=== PATIENT | male | born 1995 | race Caucasian/White ===

== ENCOUNTER → 2019-01-21 | Outpatient (CLI) | payer OTHER, SELFPAY ==
--- NOTE | 2019-01-21 08:39 | RAD_ITS ---
STUDY: X-RAY - ABDOMEN/PELVIS REASON FOR EXAM: Male, 23 years old. Back pain TECHNIQUE: Flat and upright COMPARISON: None. FINDINGS: Normal visualized lung bases. There is an unremarkable bowel gas pattern. There is no demonstrated free abdominal air. The visualized liver, spleen and kidneys are grossly normal in size and morphology. Normal soft tissue structures. Mild dextroscoliosis or splinting secondary to muscle spasm RAD/Abd Inc Decub and/or Erect IMPRESSION: Nonspecific abdomen Electronically Signed: Edgard Shields MD at 17:05 EDT , Service support ,
[2019-01-21 10:21] LABS: Erythrocyte Sedimentation Rate 1 mm/hr (0-15)
[2019-01-21 10:22] LABS: Absolute Lymphocyte Count 1.88 X10^3/uL (0.83-4.51); Absolute Neutrophil Count 3.4 X10^3/uL (2.0-7.7); Basophil# 0.06 X10^3/uL; Eosinophil# 0.18 X10^3/uL; Hematocrit 42.3 % (40-54); Hemoglobin 14.5 g/dL (13.0-16.5); Lymphocyte # 1.88 X10^3/ul (4.0); Lymphocyte % 31.6 % (19-41); Mean Corp Hgb Conc 34.3 g/dL (32-36); Mean Corpuscular Volume 90.6 fL (80-94); Mean Platelet Vol. 10.1 fl (6.2-12.0); Monocyte% 6.7 % (0-10); NRBC Flagged by Analyzer 0 % (0-5); Neutrophil # 3.41 X10^3/uL (2.7-7.7); Neutrophil % 57.4 % (47-70); Platelet Count 312 K/mm3 (150-450); RBC Distribution Width CV 12.4 % (11.6-14.6); RBC Distribution Width SD 41.1 fl (35.1-43.9); Red Blood Count 4.67 M/mm3 (4.6-6.2)
[2019-01-21 10:33] LABS: ALB/GLOB Ratio 1.8 RATIO (0.9-2.4); AST(SGOT) 9 U/L (15-37); Alanine Aminotransfer ALT/SGPT 14 U/L (16-61); Albumin, Serum 4.6 g/dL (3.2-5.0); Alkaline Phosphatase 73 U/L (45-117); Amylase 50 U/L (25-115); Anion Gap 4 (5-15); BUN 8 mg/dL (7-18); BUN/Creat Ratio 8.2 RATIO (10-20); Calcium,Total 8.9 mg/dL (8.5-10.1); Chloride 105 mmol/L (98-107); Creatinine, Serum 0.97 mg/dL (0.70-1.30); EST Glomerular Filtration Rate 101 mL/min (>60); Est Glom Filt Rate - Afr Amer 122 mL/min (>60); Globulin 2.6 g/dL (2.2-4.2); Glucose 102 mg/dL (74-106); Lipase 59 U/L (73-393); Potassium 4.3 mmol/L (3.5-5.1); Protein, Total 7.2 g/dL (6.4-8.2); Sodium Level 138 mmol/L (136-145)
== END | disposition home or self-care (01) ==
LOC: MTLAB 08:30
PROVIDERS: Family Provider Family Medicine; PCP Family Medicine; Referring Provider Family Medicine; Visit Provider Family Medicine
DX: R10.9 Unspecified abdominal pain (principal)
CPT/HCPCS: 36415; 74019; 80053; 82150; 83690; 85025; 85652

== ENCOUNTER 2023-02-07 10:30 | Observation (INO) | payer OTHER, SELFPAY ==
[2023-02-07] VITALS (9 sets, daily range): BP systolic 106–137; BP diastolic 64–85; PULSE 74–112; RESP 14–95; TEMP 36.3–38.7; O2SAT 96–100; BMI 21.3; BMI 21.6
--- NOTE | 2023-02-07 11:07 | CT_ITS ---
STUDY: CT ABDOMEN AND PELVIS WITH CONTRAST REASON FOR EXAM: Male, 27 years old. 24 hour history of right lower quadrant pain with nausea and vomiting. RADIATION DOSAGE (If Supplied By Facility): CTDIvol = ( 6.21 ) mGy, DLP = ( 303.19 ) mGycm TECHNIQUE: Transaxial images were obtained from the dome of the diaphragm to the symphysis pubis without oral contrast. IV 100mL Isovue-300 was administered. Sagittal and coronal images were reconstructed. Individualized dose optimization techniques were used for this CT. COMPARISON: None. FINDINGS: The visualized lung bases are unremarkable. The visualized portions of the heart are within normal limits. Normal liver. Normal gallbladder and extrahepatic biliary system. Normal spleen. Normal pancreas. Normal bilateral adrenal glands. Normal right kidney. Normal left kidney. Normal visualized stomach. Normal small intestine. Normal colon. There is a tubular, thick-walled appendix (>7mm), consistent with acute appendicitis. There is evidence of a 3.5 mm appendicolith in the proximal appendiceal lumen. Normal abdominal aorta. Normal inferior vena cava. Normal retroperitoneum. Normal urinary bladder. Normal abdominal wall. Mild degree of degenerative changes at the L5-S1 level. CT/Abdomen/Pelvis W IV Cont ONLY IMPRESSION: Findings in keeping with the known complicated acute appendicitis with a 3.5 mm appendicolith in the proximal appendiceal. Electronically Signed: Joe Soler MD at 11:58 EDT ,
--- NOTE | 2023-02-07 11:08 | EX.ED.DYSGE1 ---
HPI History of Present Illness Chief Complaint: Abd Pain Informant: patient Onset/Context/Timing Onset: Yesterday Context: Gradual Onset Narrative Narrative: Patient presents with right lower quadrant pain that started about 24 hours ago. He has had nausea and vomiting, last episode about 3 hours ago. He reports subjective fever but did not check his temperature. He denies urinary symptoms, constipation, or diarrhea. PFSH PFSH Medical History no medical history no medical history Allergy/AdvReac Type Severity Reaction Status Date / Time Penicillins Allergy Unknown Other Verified 02/07/23 10:31 Social History Smoking Status: Never smoker ROS ROS ED Constitutional Constitutional ED: Reports fever(s) and subjective; Denies chills Eyes Eyes: Denies change in vision or discharge from eye(s) ENT ENT ED: Denies discharge from eye(s), rhinorrhea or sore throat Cardiovascular Cardiovascular: Denies chest pain Respiratory/Chest Respiratory/Chest: Denies cough or dyspnea Gastrointestinal Gastrointestinal: Reports abdominal pain, nausea and vomiting; Denies diarrhea Genitourinary Genitourinary ED: Denies dysuria Musculoskeletal Musculoskeletal: Denies back pain or extremity pain Integumentary Denies Abrasions or rash Neurologic Neurologic: Denies headache(s) or weakness Psychiatric Psychiatric: Denies anxiety or depression Allergic/Immunologic Allergic/Immunologic ED: Denies lip swelling or urticaria EXAM Physical Exam Const Vital Signs: 02/07/23 10:31 Temperature 98 F Temperature Source Temporal Pulse Rate 97 Respiratory Rate 14 Blood Pressure 126/78 H Blood Pressure Mean 94 Pulse Ox 100 Oxygen Delivery Method Room Air Positive well nourished and well developed General Appearance ED: well developed HEENT Reports normocephalic and head/scalp atraumatic Eyes PERRL and EOMs intact bilaterally Neck supple Chest Wall inspection of chest normal and palpation of chest normal Resp normal respiratory effort and clear to auscultation bilaterally Cardio regular rate and regular rhythm GI GI Narrative: Moderate tenderness to the right lower quadrant. No guarding. Hypoactive but present bowel sounds are noted. Palpation: soft Back/Spine no CVA tenderness Extremity normal to inspection Neuro oriented x3 and no sensory deficits noted Sensorium / Orientation: alert Motor Exam: strength 5/5 throughout Psych mental status grossly normal Skin no rashes or lesions noted MDM MDM MDM Narrative Medical decision making narrative: Patient given morphine, Zofran, IV fluids. Labwork obtained to evaluate for leukocytosis, anemia, and electrolyte derangement. Urinalysis obtained to evaluate for infection/hematuria. CT scan abdomen pelvis with IV contrast obtained to evaluate for appendicitis History & Record Review Discussion w/independent historian: Patient Lab Data Attestation: I reviewed the patient's lab results. Labs: Laboratory Results - last 24 hr 02/07/23 10:39 WBC 19.1 H RBC 4.51 L Hgb 14.2 Hct 39.8 L MCV 88.2 MCH 31.5 MCHC 35.7 RDW Std Deviation 41.3 RDW Coeff of Iram 12.8 Plt Count 311 MPV 9.8 Immature Gran % (Auto) 0.500 Neut % (Auto) 84.8 H Lymph % (Auto) 7.5 L Bee % (Auto) 6.8 Eos % (Auto) 0.1 Baso % (Auto) 0.3 Absolute Neuts (auto) 16.2 H Absolute Lymphs (auto) 1.43 Nucleated RBC % 0 Sodium 136 Potassium 3.9 Chloride 103 Carbon Dioxide 26.0 Anion Gap 7 BUN 10 Creatinine 0.91 Estim Creat Clear Calc 113.04 Est GFR (MDRD) Af Amer 128 Est GFR (MDRD) Non-Af 105 BUN/Creatinine Ratio 11.0 Glucose 107 H Calcium 9.4 Radiography Diagnostic Testing: Clinical Impression(s) from Imaging Studies Abdomen/Pelvis CT 02/07/23 11:07 IMPRESSION: Findings in keeping with the known complicated acute appendicitis with a 3.5 mm appendicolith in the proximal appendiceal. Electronically Signed: Joe Soler MD at 11:58 EDT , Treatment and Re-Evaluation :: CBC reveals leukocytosis with a white count of 19.1 and 84% neutrophils. Hemoglobin is 14.2. Chemistry studies are unremarkable. CT scan of the abdomen and pelvis with IV contrast reveals appendicitis with a thick-walled appendix measuring greater than 7 mm and a 3.5 mm appendicolith in the proximal appendiceal lumen. Test results are discussed with patient and family. Given he has a penicillin allergy he is given Cipro and Flagyl. I will speak with surgery. Discharge Plan Triage Chief Complaint: Abd Pain ED Provider: Shell Barajas Dx/Rx/DC Orders Clinical Impression: Acute appendicitis Primary Care Provider: Rickey Beach Referrals: Rickey Beach MD [Primary Care Provider] - Disposition Disposition: Acute Care Hospital [facility]
[2023-02-07 11:15] LABS: Absolute Lymphocyte Count 1.43 X10^3/uL (0.83-4.51); Absolute Neutrophil Count 16.2 X10^3/uL (2.0-7.7); Basophil# 0.05 X10^3/uL; Basophil% 0.3 % (0-1); Eosinophil# 0.01 X10^3/uL; Eosinophils% 0.1 % (0-5); Hematocrit 39.8 % (40-54); Hemoglobin 14.2 g/dL (13.0-16.5); Lymphocyte # 1.43 X10^3/ul (0.83-4.51); Lymphocyte % 7.5 % (19-41); Mean Corp Hgb Conc 35.7 g/dL (32-36); Mean Corpuscular Hgb 31.5 pg (27.0-32.0); Mean Corpuscular Volume 88.2 fL (80-94); Mean Platelet Vol. 9.8 fl (6.2-12.0); Monocyte% 6.8 % (0-10); NRBC Flagged by Analyzer 0 % (0-5); Neutrophil # 16.23 X10^3/uL (2.7-7.7); Neutrophil % 84.8 % (47-70); Platelet Count 311 K/mm3 (150-450); RBC Distribution Width CV 12.8 % (11.6-14.6); RBC Distribution Width SD 41.3 fl (35.1-43.9); Red Blood Count 4.51 M/mm3 (4.6-6.2); White Blood Count 19.1 K/mm3 (4.4-11.0)
[2023-02-07] MEDS: 0.9% Normal Saline 1,000 ML 150 ML IV (11:23)
[2023-02-07 11:31] LABS: Anion Gap 7 (5-15); BUN 10 mg/dL (7-18); Calcium,Total 9.4 mg/dL (8.5-10.1); Chloride 103 mmol/L (98-107); Creatinine, Serum 0.91 mg/dL (0.70-1.30); EST Glomerular Filtration Rate 105 mL/min (>60); Est Glom Filt Rate - Afr Amer 128 mL/min (>60); Estimated Creatinine Clearance 113.04 ml/min; Glucose 107 mg/dL (74-106); Potassium 3.9 mmol/L (3.5-5.1); Sodium Level 136 mmol/L (136-145)
[2023-02-07] MEDS: Ciprofloxacin 400 MG/200 ML BAG 200 MG IV ×2 (12:07→22:47)
--- NOTE | 2023-02-07 12:19 | NURSING ---
MED SURG OR SURGERY BORTZ APPENDICITIS
[2023-02-07] MEDS: Ondansetron 4 MG/2 ML Vial IV (12:47)
[2023-02-07] MEDS: Morphine 4 MG/ML Syringe IV (12:47)
[2023-02-07] MEDS: metroNIDAZOLE 500 MG/100 ML BAG 100 MG IV ×2 (13:13→21:24)
[2023-02-07 13:22] LABS: Bacteria 0 SEEN /hpf (None Seen); Mucous, Urine 0 SEEN /hpf (<or=2+); Red Blood Cells-Urine 0 SEEN /hpf (0-5); Squamous Epithelial Cells - UA 0 SEEN /hpf (0-5); White Blood Cells 0 SEEN /hpf (0-5)
[2023-02-07 13:27] LABS: Color, Urine Straw (Yellow); Glucose, Dipstick Normal (Normal); Ketone-Dipstick 5 mg/dl (Negative); Leukocyte Esterase-Dipstick Negative /ul (Negative); Nitrite-Dipstick Negative (Negative); Occult Blood-Urine Negative /ul (Negative); Protein-Dipstick Negative (Negative); Specific Gravity, Urine 1.005 (1.002-1.030); Urine Bilirubin Dipstick Negative (Negative); Urine Clarity Clear (Clear); Urine Urobilinogen Normal (Normal)
--- NOTE | 2023-02-07 13:33 | PCM.HP.STD ---
HPI - General General Date of Service: 02/07/23 Chief Complaint: Acute onset abdominal pain with associated nausea and vomiting HPI Narrative JAZZY CLAUDIO, is a 27, otherwise healthy, M who presents to [facility] with complaints of abdominal pain that began acutely 24 hours ago. He notes some associated nausea and vomiting. He states that the pain was generally diffuse and then became localized to the right lower quadrant since its onset. He actually describes having a prior episode several years ago but never presented for medical attention. There are subjective fevers, but no temperature has been recorded. Mr. Claudio notes normal bowel movement yesterday before the pain began. ER work-up remarkable for CBC with leukocytosis to 19,[address] of the abdomen pelvis shows evidence of acute appendicitis with appendicolith. 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 PFSH Medical History no medical history Allergy/AdvReac Type Severity Reaction Status Date / Time Penicillins Allergy Unknown Other Verified 02/07/23 10:31 Social History Smoking Status: Never smoker ROS Constitutional Constitutional: Reports fever(s) Gastrointestinal Gastrointestinal: Reports abdominal pain, nausea and vomiting; Denies constipation or diarrhea Vital Signs Vital Signs Vital Signs: 02/07/23 10:31 02/07/23 13:04 Temperature 98 F 97.4 F L Temperature Source Temporal Temporal Pulse Rate 97 74 Respiratory Rate 14 16 Blood Pressure 126/78 H 137/66 H Blood Pressure Mean 94 89 Pulse Ox 100 98 Oxygen Delivery Method Room Air Room Air Weight Weight: 144 lb 8 oz Body Mass Index (BMI) 21.3 Physical Exam Const alert, oriented x3 and no apparent distress Resp normal respiratory effort GI GI Narrative: Slender, nondistended, no scars, soft, tender to palpation over McBurney's point. Positive Rovsing sign. Negative obturator sign. Results Lab / Micro Data 02/07/23 10:39 02/07/23 10:39 Labs: Laboratory Results - last 24 hr 02/07/23 10:39: WBC 19.1 H, RBC 4.51 L, Hgb 14.2, Hct 39.8 L, MCV 88.2, MCH 31.5, MCHC 35.7, RDW Std Deviation 41.3, RDW Coeff of Iram 12.8, Plt Count 311, MPV 9.8, Immature Gran % (Auto) 0.500, Neut % (Auto) 84.8 H, Lymph % (Auto) 7.5 L, [place] % (Auto) 6.8, Eos % (Auto) 0.1, Baso % (Auto) 0.3, Absolute Neuts (auto) 16.2 H, Absolute Lymphs (auto) 1.43, Nucleated RBC % 0, Sodium 136, Potassium 3.9, Chloride 103, Carbon Dioxide 26.0, Anion Gap 7, BUN 10, Creatinine 0.91, Estim Creat Clear Calc 113.04, Est GFR (MDRD) Af Amer 128, Est GFR (MDRD) Non-Af 105, BUN/Creatinine Ratio 11.0, Glucose 107 H, Calcium 9.4 02/07/23 13:15: Urine Color Straw, Urine Clarity Clear, Urine pH 7.0, Ur Specific [place] 1.005, Urine Protein Negative, Urine Glucose (UA) Normal, Urine Ketones 5 H, Urine Occult Blood Negative, Urine Nitrite Negative, Urine Bilirubin Negative, Urine Urobilinogen Normal, Ur Leukocyte Esterase Negative Radiology Impression Abdomen/Pelvis CT 02/07/23 11:07 IMPRESSION: Findings in keeping with the known complicated acute appendicitis with a 3.5 mm appendicolith in the proximal appendiceal. Electronically Signed: Joe Soler MD at 11:58 EDT , Assessment & Plan Assessment/Plan (1) Acute appendicitis: PLAN: This is a 27-year-old, otherwise healthy, male with a history of acute onset abdominal pain beginning 24 hours ago that has become localized to the right lower quadrant with some associated nausea and vomiting. ER work-up is consistent with diagnosis of acute appendicitis. Moreover, patient has appendicoliths visualized with CT imaging. And finally his exam is consistent with this diagnosis. Therefore, I have recommended proceeding with a emergent laparoscopic appendectomy. I have discussed the role of IV antibiotics and the diagnosis of appendicitis, but referenced the recent coda trial and stated I would not recommend an antibiotic?alone approach?especially given the presence of these appendicoliths. Mr. Claudio and his family expressed their understanding of this information and wish to proceed as soon as possible. I have shared with them that it is my hope we will be able to finish in the operating room at an hour that we will allow him to discharge home (barring any unforeseen issues in the operating room). Patient was consented for a laparoscopic appendectomy after a discussion of the relevant risks and postoperative activity restrictions. Antibiotics were previously initiated by emergency medicine. Charges/Coding Visit Charges Office Visits / Consults: 81203 ED Visit; High/Urgent Severity
[2023-02-07] MEDS: Lactated Ringers 1,000 ML 15 ML IV (15:34)
--- NOTE | 2023-02-07 16:00 | APP_PTH ---
PATIENT: JAZZY CLAUDIO LOC: MS3 U#:[id number] AGE/SX: 27/M ROOM: [facility] RE02/07/[address]: Dr. Luther Sorensen MD : 1995 BED: 1 DIS: 02/09/2023 SPEC #: [id number] RECD: 02/08/23 09:48 STATUS: MARIO REMateo #: [id number] CATHERINE: 02/07/23 16:[address]: Luther Sorensen DEPT: SURGICAL PATHOLOGY RECD BY: Benita Cavazos ENTERED: 02/08/23 10:21 SP TYPE: APPENDIX OTHR DR: Dr. Sebastian Beach MD Tissues: Appendix, NOS Procedures: Surgery Specimen Level III HEADER OPERATION: Laparoscopic appendectomy PRE-OP DIAGNOSIS: Acute appendicitis TISSUE SUBMITTED: Appendix MICROSCOPIC DIAGNOSIS Appendix, appendectomy: Acute appendicitis and periappendicitis. NANCY:abby 02/12/2023 MICROSCOPIC DESCRIPTION Slides are reviewed. GROSS DESCRIPTION Received in fixative is one container labeled with the patient's name and designated appendix. The specimen consists of a S-shaped appendix measuring 8.0 cm in length and up to 1.5 cm in diameter. The serosa is congested. No obvious perforation is identified. The serosa is focally covered with larkin, purulent exudate. The lumen contains fecal material. No fecalith is identified. Heat Regulator sections are submitted in one cassette. / SJ:rg 02/08/2023 TC:2 CPT: 22554
[2023-02-07] MEDS: Clindamycin 900 MG/50 ML BAG 75 MG IV (16:42)
[2023-02-07] MEDS: Bupivacaine Mpf 0.5% 30 ML VIAL (18:18)
--- NOTE | 2023-02-07 18:25 | PCM.OPRPT ---
Report of Operation Date of Procedure: 02/07/23 Pre-Operative Diagnosis: Acute appendicitis with appendicoliths Post-Operative Diagnosis: Acute, complicated (perforated) appendicitis with appendicoliths Surgery/Procedure Performed:: Laparoscopic appendectomy with drain placement Description of Surgical Findings:: ? Purulent fluid around the right paracolic gutter, retrocecal appendix with appendiceal tip entwined with the soft tissue attachments to the ascending colon near the hepatic flexure Surgeon: Luther Sorensen Type of Anesthesia: General/Supplemental Anesthesiologist: Gene Clayton Specimen's removed: Appendix Drains: 15 Nepalese round Patrice Estimated Blood Loss (mL): 15 Description of Procedure: After appropriate identification in the preoperative holding area, the patient was brought to the operating room and placed supine on the operating room table. Antibiotics had been preoperatively administered. Patient was then induced with general endotracheal anesthetic. The abdomen was prepped and draped in usual sterile fashion. Formal timeout was conducted to confirm both the patient and the procedure. A supraumbilical incision was made and carried down to the level of the fascia which was sharply opened. After opening the peritoneum in like fashion a finger sweep was made to confirm position, and a balloon trocar was placed and pneumoperitoneum was established to 15 mmHg. Patient was positioned in Trendelenburg with the left side down. Two additional 5 mm trocars were placed in the left lower quadrant and suprapubic positions. The peritoneum was inspected and there were no signs of inadvertent injury from this Loving entry. However the area of the cecum and ascending colon was inspected and it was immediately apparent that there was purulent fluid tracking along the right paracolic gutter. Notably, the appendix was not readily visible. There was some significant inflammation crossing the ascending colon as it approached the hepatic flexure. Therefore I resolved to try to trace the appendix through the coalescence of the tinea and found it coursing directly in a retrocecal lie. Given this position and the significant inflammation to the adjacent colon I believed the appendix would be best approached through [id number] mobilization of the right colon and therefore incised the white line of Toldt and bluntly mobilized the colon medially. This allowed me to free the appendix from the soft tissue attachments to the ascending colon. Denser attachments were taken with the harmonic scalpel directly adjacent to the appendix to mitigate the risk for inadvertent colon injury. Then I was able to use a [place] grasper to bluntly develop a window at the base of the appendix. The base of the appendix was sealed and amputated with the use of an Endo DARÍO stapler. Gradually then I divided the mesoappendix with the harmonic scalpel but it remained deeply embedded within the soft tissue attachments to the ascending colon at the tip. Here I applied upward traction on the appendix and performed blunt dissection with a [place] grasper using the downward weight of the colon to my advantage to free the tip of the appendix from these attachments. They were carefully lysed as well with the harmonic scalpel. Ultimately I was able to visualize the full remaining length of the appendix and divided the mesoappendix that remained with the harmonic scalpel. The appendix was placed in an Endo Catch bag. The staple line was inspected for hemostasis. The retroperitoneum where the colon had been mobilized was also inspected for hemostasis. Initially there was slight oozing in the far right upper quadrant, but I applied some pressure to this area and the bleeding stopped. After hemostasis was confirmed a 15 [place]e round Patrice drain was fed in through the umbilical port and removed through the suprapubic port?taking the port with the drain tubing. The drain tubing was secured at the skin using a 2-0 nylon stitch. The appendix was removed from the umbilical port site. Pneumoperitoneum was then evacuated and the supraumbilical port site fascia was closed with #1 Vicryl in a [id number] fashion. The port sites were infiltrated with 30mL local anesthetic. The skin of each port site was closed with 4-0 Monocryl in a subcuticular fashion. Steri-Strips and OpSite dressings were applied. Patient tolerated procedure well without any apparent complications. They were awoken from general anesthetic without issue and transferred to post anesthesia care unit for ongoing recovery. Complications None Admit VTE Documentation VTE Mechan Device Prophylaxis: SCD's Procedures Digestive 40xxx-49xxx: 14639 Laparoscopy appendectomy
[2023-02-07] MEDS: Acetaminophen 500 MG Tablet PO (20:25)
[2023-02-07] MEDS: oxyCODONE 5 MG Tablet PO (20:25)
[2023-02-07] MEDS: 0.9% Normal Saline 1,000 ML 100 ML IV (20:31)
[2023-02-08] VITALS (9 sets, daily range): BP systolic 97–109; BP diastolic 56–68; PULSE 64–92; RESP 14–16; TEMP 36.6–36.9; O2SAT 95–100
[2023-02-08] MEDS: Ibuprofen 400 MG Tablet PO ×4 (00:43→18:02)
[2023-02-08] MEDS: metroNIDAZOLE 500 MG/100 ML BAG 100 MG IV ×3 (05:26→21:02)
[2023-02-08] MEDS: Acetaminophen 500 MG Tablet PO ×2 (05:27→19:41)
[2023-02-08] MEDS: oxyCODONE 5 MG Tablet PO ×3 (05:28→21:01)
--- NOTE | 2023-02-08 06:53 | PCM.PN.SRG ---
Subjective Subjective Patient reports that he is overall feeling better today. He admits to some soreness. He notes some particular discomfort around his groin. He denies an appetite yet this morning. Nursing states that there have not been any acute events overnight, but do remark that patient's blood pressure has been on the softer side this morning. Objective Data Objective Data Vital Signs: Vital Signs Temp Pulse Resp BP Pulse Ox O2 Del Method 98 F 92 16 100/58 L 99 Room Air 02/08/23 05:35 02/08/23 05:35 02/08/23 05:35 02/08/23 06:42 02/08/23 05:35 02/08/23 05:35 Oxygen Delivery Method Room Air Weight: 146 lb 9.718 oz Body Mass Index (BMI) 21.6 Intake & Output: Intake and Output for Last 24 Hours 02/06/23 02/07/23 02/08/23 23:59 23:59 23:59 Intake Total 2743.33 / 2743.33 926.67 / 926.67 Output Total 315 / 315 15 / 15 Balance 2428.33 / 2428.33 911.67 / 911.67 Lab / Micro Data 02/08/23 05:58 02/08/23 05:58 Labs: Laboratory Results - last 24 hr 02/07/23 10:39: WBC 19.1 H, RBC 4.51 L, Hgb 14.2, Hct 39.8 L, MCV 88.2, MCH 31.5, MCHC 35.7, RDW Std Deviation 41.3, RDW Coeff of Iram 12.8, Plt Count 311, MPV 9.8, Immature Gran % (Auto) 0.500, Neut % (Auto) 84.8 H, Lymph % (Auto) 7.5 L, [place] % (Auto) 6.8, Eos % (Auto) 0.1, Baso % (Auto) 0.3, Absolute Neuts (auto) 16.2 H, Absolute Lymphs (auto) 1.43, Nucleated RBC % 0, Sodium 136, Potassium 3.9, Chloride 103, Carbon Dioxide 26.0, Anion Gap 7, BUN 10, Creatinine 0.91, Estim Creat Clear Calc 113.04, Est GFR (MDRD) Af Amer 128, Est GFR (MDRD) Non-Af 105, BUN/Creatinine Ratio 11.0, Glucose 107 H, Calcium 9.4 02/07/23 13:15: Urine Color Straw, Urine Clarity Clear, Urine pH 7.0, Ur Specific [place] 1.005, Urine Protein Negative, Urine Glucose (UA) Normal, Urine Ketones 5 H, Urine Occult Blood Negative, Urine Nitrite Negative, Urine Bilirubin Negative, Urine Urobilinogen Normal, Ur Leukocyte Esterase Negative, Urine RBC 0 SEEN, Urine WBC 0 SEEN, Ur Squamous Epith Cells 0 SEEN, Urine Bacteria 0 SEEN, Urine Mucus 0 SEEN Radiography Diagnostic Testing: Radiology Impression Abdomen/Pelvis CT 02/07/23 11:07 IMPRESSION: Findings in keeping with the known complicated acute appendicitis with a 3.5 mm appendicolith in the proximal appendiceal. Electronically Signed: Joe Soler MD at 11:58 EDT , Physical Exam Const oriented x3 and no apparent distress Resp normal respiratory effort GI GI Narrative: Soft, mildly tender to palpation around left lower quadrant port site. Suprapubic drain with serosanguineous output (scant volume) Assessment & Plan Assessment/Plan (1) Acute perforated appendicitis: PLAN: Plan Patient is 27-year-old male postoperative day 1 from laparoscopic appendectomy with drain placement due to intraoperative findings of perforated appendicitis. His family has been extensively debriefed about my expectations for a postoperative SIRS response and probable ileus. Patient was febrile postoperatively, but his fever curve seems to be trending appropriately. He is tolerating a clear liquid diet, but also confesses he is yet to pass flatus postoperatively. He does report some groin discomfort which seems at least partially related to the presence of his suprapubic drain. He notes that he had some difficulty urinating initially, but that this is becoming progressively better. He expresses a desire to discharge home, but acknowledges that he knows he must not abdul things. ?Continue clear liquid diet without carbonation ? Continue to monitor drain output ? Continue IV antibiotics (we will look to hopefully advance diet tomorrow and transition to oral antibiotics) Charges/Coding Visit Charges Inpatient E&M: 57740 Subs Hosp L2
[2023-02-08 07:08] LABS: Absolute Lymphocyte Count 1.21 X10^3/uL (0.83-4.51); Absolute Neutrophil Count 11.3 X10^3/uL (2.0-7.7); Basophil# 0.01 X10^3/uL; Basophil% 0.1 % (0-1); Eosinophil# 0.01 X10^3/uL; Eosinophils% 0.1 % (0-5); Hematocrit 35.1 % (40-54); Hemoglobin 11.3 g/dL (13.0-16.5); Lymphocyte # 1.21 X10^3/ul (0.83-4.51); Lymphocyte % 9.1 % (19-41); Mean Corp Hgb Conc 32.2 g/dL (32-36); Mean Corpuscular Volume 93.1 fL (80-94); Mean Platelet Vol. 10.4 fl (6.2-12.0); Monocyte# 0.68 X10^3/uL; Monocyte% 5.1 % (0-10); NRBC Flagged by Analyzer 0 % (0-5); Neutrophil % 84.8 % (47-70); Platelet Count 268 K/mm3 (150-450); RBC Distribution Width CV 13.1 % (11.6-14.6); RBC Distribution Width SD 44.8 fl (35.1-43.9); Red Blood Count 3.77 M/mm3 (4.6-6.2); White Blood Count 13.3 K/mm3 (4.4-11.0)
[2023-02-08 07:48] LABS: Anion Gap 5 (5-15); BUN 12 mg/dL (7-18); BUN/Creat Ratio 14.6 RATIO (10-20); Calcium,Total 8.5 mg/dL (8.5-10.1); Chloride 106 mmol/L (98-107); Creatinine, Serum 0.82 mg/dL (0.70-1.30); EST Glomerular Filtration Rate 119 mL/min (>60); Est Glom Filt Rate - Afr Amer 143 mL/min (>60); Estimated Creatinine Clearance 127.28 ml/min; Glucose 107 mg/dL (74-106); Potassium 4.2 mmol/L (3.5-5.1); Sodium Level 139 mmol/L (136-145)
[2023-02-08] MEDS: 0.9% Normal Saline 1,000 ML 100 ML IV ×2 (09:26→20:48)
[2023-02-08] MEDS: Ciprofloxacin 400 MG/200 ML BAG 200 MG IV ×2 (09:27→22:18)
--- NOTE | 2023-02-08 13:45 | NURSING ---
Attempted to call mother Ana Rosa back but no answer. Will try again later.
[2023-02-09] MEDS: Ibuprofen 400 MG Tablet PO ×3 (00:47→12:57)
[2023-02-09 00:48] VITALS: BP 94/59; PULSE 73; RESP 16; TEMP 36.4; O2SAT 99
[2023-02-09 04:48] LABS: Absolute Neutrophil Count 4.7 X10^3/uL (2.0-7.7); Basophil# 0.04 X10^3/uL; Basophil% 0.5 % (0-1); Eosinophil# 0.18 X10^3/uL; Eosinophils% 2.2 % (0-5); Hematocrit 31.7 % (40-54); Hemoglobin 10.6 g/dL (13.0-16.5); Lymphocyte % 32.1 % (19-41); Mean Corp Hgb Conc 33.4 g/dL (32-36); Mean Corpuscular Hgb 30.9 pg (27.0-32.0); Mean Corpuscular Volume 92.4 fL (80-94); Monocyte# 0.59 X10^3/uL; Monocyte% 7.3 % (0-10); NRBC Flagged by Analyzer 0 % (0-5); Neutrophil # 4.67 X10^3/uL (2.7-7.7); Neutrophil % 57.7 % (47-70); Platelet Count 226 K/mm3 (150-450); RBC Distribution Width CV 13.1 % (11.6-14.6); RBC Distribution Width SD 43.9 fl (35.1-43.9); Red Blood Count 3.43 M/mm3 (4.6-6.2); White Blood Count 8.1 K/mm3 (4.4-11.0)
[2023-02-09 05:15] LABS: Anion Gap 4 (5-15); BUN 14 mg/dL (7-18); BUN/Creat Ratio 19.3 RATIO (10-20); Chloride 109 mmol/L (98-107); Creatinine, Serum 0.72 mg/dL (0.70-1.30); EST Glomerular Filtration Rate 137 mL/min (>60); Est Glom Filt Rate - Afr Amer 166 mL/min (>60); Estimated Creatinine Clearance 144.96 ml/min; Glucose 90 mg/dL (74-106); Magnesium 1.9 mg/dL (1.6-2.6); Phosphorus 3.1 mg/dL (2.5-4.9); Potassium 3.8 mmol/L (3.5-5.1); Sodium Level 141 mmol/L (136-145)
[2023-02-09] MEDS: metroNIDAZOLE 500 MG/100 ML BAG 100 MG IV ×2 (05:44→13:01)
[2023-02-09 05:47] VITALS: BP 110/66; PULSE 62; RESP 16; TEMP 36.6; O2SAT 100
--- NOTE | 2023-02-09 07:28 | PCM.PN.SRG ---
Subjective Subjective Patient seen and examined during AM rounds. He reported no acute events overnight. He stated that he had an appetite. Abdominal/pelvic pain from yesterday is much improved. Seen later in the day after diet was advanced, patient commented that he had no difficulties with any nausea or bloating and continued to pass flatus. Objective Data Objective Data Vital Signs: Vital Signs Temp Pulse Resp BP Pulse Ox O2 Del Method 97.8 F 62 16 110/66 100 Room Air 02/09/23 05:47 02/09/23 05:47 02/09/23 05:47 02/09/23 05:47 02/09/23 05:47 02/09/23 05:47 Oxygen Delivery Method Room Air Weight: 146 lb 9.718 oz Body Mass Index (BMI) 21.6 Intake & Output: Intake and Output for Last 24 Hours 02/07/23 02/08/23 02/09/23 23:59 23:59 23:59 Intake Total 2743.33 / 2743.33 2813.34 / 3013.34 1500 / 1500 Output Total 315 / 315 40 / 70 90 / 90 Balance 2428.33 / 2428.33 2773.34 / 2943.34 1410 / 1410 Lab / Micro Data 02/09/23 04:00 02/09/23 04:00 Labs: Laboratory Results - last 24 hr 02/08/23 05:58: Sodium 139, Potassium 4.2, Chloride 106, Carbon Dioxide 28.0, Anion Gap 5, BUN 12, Creatinine 0.82, Estim Creat Clear Calc 127.28, Est GFR (MDRD) Af Amer 143, Est GFR (MDRD) Non-Af 119, BUN/Creatinine Ratio 14.6, Glucose 107 H, Calcium 8.5 02/09/23 04:00: WBC 8.1, RBC 3.43 L, Hgb 10.6 L, Hct 31.7 L, MCV 92.4, MCH 30.9, MCHC 33.4, RDW Std Deviation 43.9, RDW Coeff of Iram 13.1, Plt Count 226, MPV 10.0, Immature Gran % (Auto) 0.200, Neut % (Auto) 57.7, Lymph % (Auto) 32.1, [place] % (Auto) 7.3, Eos % (Auto) 2.2, Baso % (Auto) 0.5, Absolute Neuts (auto) 4.7, Absolute Lymphs (auto) 2.60, Nucleated RBC % 0, Sodium 141, Potassium 3.8, Chloride 109 H, Carbon Dioxide 28.0, Anion Gap 4 L, BUN 14, Creatinine 0.72, Estim Creat Clear Calc 144.96, Est GFR (MDRD) Af Amer 166, Est GFR (MDRD) Non-Af 137, BUN/Creatinine Ratio 19.3, Glucose 90, Calcium 8.0 L, Phosphorus 3.1, Magnesium 1.9 Physical Exam Const oriented x3 and no apparent distress Resp normal respiratory effort GI GI Narrative: Soft, nondistended, nontender to palpation. Drain site in suprapubic position with serous output. Assessment & Plan Assessment/Plan (1) Acute perforated appendicitis: PLAN: Plan Patient is 27-year-old male postoperative day 2 from laparoscopic appendectomy with drain placement due to intraoperative findings of perforated appendicitis. He is doing much better today. He has appropriate pain control. He does not show any signs of a postoperative ileus with tolerance of regular food. We will plan to transition him to oral antibiotics upon discharge to try to minimize his risk for a postoperative abscess. I will plan to pull his drain prior to discharge. ? Regular diet ? DC drain ? DC to home with oral antibiotics and short prescription for narcotic Charges/Coding Visit Charges Inpatient E&M: 81151 Subs Hosp L2
[2023-02-09 09:00] VITALS: BP 107/65; PULSE 72; RESP 18; TEMP 36.8; O2SAT 100
[2023-02-09] MEDS: Ciprofloxacin 400 MG/200 ML BAG 200 MG IV (10:02)
[2023-02-09] MEDS: 0.9% Normal Saline 1,000 ML 25 ML IV (10:02)
[2023-02-09] MEDS: oxyCODONE 5 MG Tablet PO (13:01)
--- NOTE | 2023-02-09 15:16 | DCINST_ITS ---
Discharge Instructions Diet Discharge Diet: No restrictions Activity Discharge Activity: May Shower (But keep drain dressing free of water) Ice area for (Minutes): 20 Lifting Restrictions: No lifting greater than 15 pounds for 2 weeks after surgery Dressing / Incision Call your doctor if your incision/area has: Increased Pain/ Swelling, Foul Smelling Discharge, Swelling at the incision site and - (Please keep dressing in place over drain site for 48 hours then okay to remove if no longer draining) Call your doctor if you observe: Fever of 101 or Higher, Inability to urinate, Inability to have a bowel movement, Prolonged hiccupping and - (abdominal distention) Remove Dressing in: 2 days (from drain site) Cleanse incision/area with: Soap & Water Follow Up Care Please Follow Up With: Luther Sorensen MD When: 7-10 days from hospital discharge Test Results: Test results from this visit will be discussed in further detail at your follow- up appointment, if applicable. Discharge Plan Admission Admit Date/Time: 02/07/23 18:27 Primary Reason for Your Visit: Perforated appendicitis Attending Provider: Luther Sorensen Primary Care Provider: Rickey Beach Discharge Orders/Prescriptions Prescriptions: New oxycodone 5 mg Tablet 5 mg PO Q6H PRN PRN (Reason: Pain Score 6-10) 3 Days Qty: 10 0RF ciprofloxacin HCl 500 mg tablet 500 mg PO Q8H 3 Days Qty: 9 0RF metronidazole 500 mg tablet 500 mg PO Q12H 3 Days Qty: 6 0RF Referrals / Follow Up: Rickey Beach MD [Primary Care Provider] - Disposition Disposition (needs filled in before D/C Order can be placed): Home, Self Care
[2023-02-09 15:43] VITALS: BP 101/58; PULSE 74; RESP 18; TEMP 36.6; O2SAT 98
--- NOTE | 2023-02-09 16:38 | DS.PCM_ITS ---
Providers Date of Admission: 02/07/23 Primary Care Physician: Dr. Rickey Beach MD Reason For Visit: APPENDICITIS Diagnosis Discharge Diagnosis (1) Acute perforated appendicitis: Status: Acute Code(s): K35.32 - Acute appendicitis with perforation, localized peritonitis, and gangrene, without abscess Plan Patient is 27-year-old male postoperative day 2 from laparoscopic appendectomy with drain placement due to intraoperative findings of perforated appendicitis. He is doing much better today. He has appropriate pain control. He does not show any signs of a postoperative ileus with tolerance of regular food. We will plan to transition him to oral antibiotics upon discharge to try to minimize his risk for a postoperative abscess. I will plan to pull his drain prior to discharge. ? Regular diet ? DC drain ? DC to home with oral antibiotics and short prescription for narcotic Medications at Discharge Home Medications ciprofloxacin HCl 500 mg tablet 500 mg PO Q8H 3 days #9 tabs 02/09/23 metronidazole 500 mg tablet 500 mg PO Q12H 3 days #6 tabs 02/09/23 oxycodone 5 mg tablet 5 mg PO Q6H PRN PRN Pain Score 6-10 3 days #10 tabs 02/09/23 Hospital Course Operations appendectomy Procedures None Summary of Care Provided Hospital Course: Patient is a 27-year-old male who is admitted 2 days ago following a laparoscopic appendectomy with drain placement for perforated appendicitis. Postoperative day 1 Mr. Nascimento had some difficulty with postoperative discomfort and some minor delay in his bowel function returned. However, by today postoperative day 2 he is passing gas regularly and tolerating a regular diet without nausea or vomiting. Given that his drain has had scant output and that output has been clear in character it was discontinued today without event. At his request, patient was discharged home with postoperative activity restrictions and transitioned to oral antibiotics. He is advised that he will need to follow-up with me as an outpatient in 7 to 10 days. Physical Exam Const alert, oriented x3 and no apparent distress Resp normal respiratory effort GI GI Narrative: Nondistended, Steri-Strips intact over 2 port sites. Patient's drain was removed without significant tenderness and had minimal drainage of serous fluid. Here a gauze has been taped in place Weight / BMI Weight Weight: 146 lb 9.718 oz Body Mass Index (BMI) 21.6 ABG / Lab / Microbiology Data 02/09/23 04:00 02/09/23 04:00 Laboratory: Laboratory Results - last 24 hr 02/09/23 04:00: WBC 8.1, RBC 3.43 L, Hgb 10.6 L, Hct 31.7 L, MCV 92.4, MCH 30.9, MCHC 33.4, RDW Std Deviation 43.9, RDW Coeff of Iram 13.1, Plt Count 226, MPV 10.0, Immature Gran % (Auto) 0.200, Neut % (Auto) 57.7, Lymph % (Auto) 32.1, [place] % (Auto) 7.3, Eos % (Auto) 2.2, Baso % (Auto) 0.5, Absolute Neuts (auto) 4.7, Absolute Lymphs (auto) 2.60, Nucleated RBC % 0, Sodium 141, Potassium 3.8, Chloride 109 H, Carbon Dioxide 28.0, Anion Gap 4 L, BUN 14, Creatinine 0.72, Estim Creat Clear Calc 144.96, Est GFR (MDRD) Af Amer 166, Est GFR (MDRD) Non-Af 137, BUN/Creatinine Ratio 19.3, Glucose 90, Calcium 8.0 L, Phosphorus 3.1, Magnesium 1.9 D/C Instructions Discharge Diet: No restrictions Ice area for (Minutes): 20 Call your doctor if your incision/area has: Increased Pain/ Swelling, Foul Smelling Discharge, Swelling at the incision site and - (Please keep dressing in place over drain site for 48 hours then okay to remove if no longer draining) Call your doctor if you observe: Fever of 101 or Higher, Inability to urinate, Inability to have a bowel movement, Prolonged hiccupping and - (abdominal distention) Cleanse incision/area with: Soap & Water Please Follow Up With: Luther Sorensen MD When: 7-10 days from hospital discharge Meaningful Use Info Meaningful Use Diagnoses (Choose all that apply): None applicable Discharge Plan Admission Admit Date/Time: 02/07/23 18:27 Primary Reason for Your Visit: Perforated appendicitis Attending Provider: Luther Sorensen Primary Care Provider: Rickey Beach Discharge Orders/Prescriptions Prescriptions: New oxycodone 5 mg Tablet 5 mg PO Q6H PRN PRN (Reason: Pain Score 6-10) 3 Days Qty: 10 0RF ciprofloxacin HCl 500 mg tablet 500 mg PO Q8H 3 Days Qty: 9 0RF metronidazole 500 mg tablet 500 mg PO Q12H 3 Days Qty: 6 0RF Referrals / Follow Up: Rickey Beach MD [Primary Care Provider] - Disposition Disposition (needs filled in before D/C Order can be placed): Home, Self Care Charges/Coding Visit Charges Inpatient E&M: 34705 Disch Hosp
== END 2023-02-09 15:54 | disposition home or self-care (01) ==
LOC: ED 12:08 → SDC 12:26 → MS3 18:48
PROVIDERS: Admitting Provider Surgery; Emergency Provider Emergency Medicine; PCP Family Medicine; Visit Provider Surgery
PROC: 0DTJ4ZZ Resection of Appendix, Percutaneous Endoscopic Approach (ICD-10-PCS; CPT 44970; principal; 2023-02-07 15:40)
DX: K35.33 Acute appendicitis with perforation, localized peritonitis, and gangrene, with abscess (principal)
CPT/HCPCS: 44970; 00840; 36415; 74177; 80048; 81001; 83735; 84100; 85025; 88304; 96361; 96365; 96366; 96367; 96375; 99221; 99284; J7030; J7120; Q9967; A4216; G0378; J0744; J2405